=== PATIENT | male | born 1980 | race Caucasian/White ===

== ENCOUNTER 2019-07-25 23:35 | Emergency (ER) | payer SELFPAY ==
[~2019-07-25] VITALS: Ht 180.3 cm; Wt 81.6 kg
[2019-07-25 23:55] VITALS: BP 127/86
--- NOTE | 2019-07-26 00:04 | NUR ---
ED Nurse Note: Pt walked in to ER with family from home c/o behavioral complant. Per pt's dad, pt has paranoia and "people is out to get him". Per mom, episode occured Monday 07/23. Pt stated he was drinking and feels tipsy. Patient presented anxious, talkactive. AAO x4, VSS at this time, skin is dry warm to touch.
--- NOTE | 2019-07-26 00:14 | Emergency Room Report ---
History of Present Illness General Chief Complaint: Behavioral Complaint Source: Patient Present Illness HPI 39-year-old male with no past medical history. He said he drinks alcohol. Parents brought him in for chief complaint of paranoia. Patient said he was very intoxicated earlier today. He felt that someone was watching him in a van and taking picture of him. He thought police was outside out to get him. He actually took his phone and go outside and look inside the van. Right now he said he felt better. He knows that he was paranoid and said it was secondary to his alcohol intoxication. This occurred 2 days ago also. He denies suicidal thoughts or homicidal thought. He actually said that he is not "a detrimental" to himself or others. He refused any blood work or drug screen. Suicidal thoughts homicidal thought. He denies any hallucination or delusion right now. Allergies: Coded Allergies: No Known Allergies (Unverified , 07/25/19) Patient History Past Medical History: see triage record, old chart reviewed Past Surgical History: none Pertinent Family History: none Social History: Reports: alcohol use Immunizations: other Reviewed Nursing Documentation: PMH: Agreed; PSxH: Agreed Review of Systems Eye: Denies: eye pain, blurred vision ENT: Denies: ear pain, nose congestion, throat swelling Respiratory: Denies: cough, shortness of breath Cardiovascular: Denies: chest pain, palpitations Gastrointestinal: Denies: abdominal pain, diarrhea, nausea, vomiting Musculoskeletal: Denies: back pain, joint pain Skin: Denies: rash Neurological: Denies: headache, numbness Endocrine: Denies: increased thirst, increased urine Hematologic/Lymphatic: Denies: easy bruising All Other Systems: negative except mentioned in HPI Physical Exam Vital Signs Date Time Temp Pulse Resp B/P (MAP) Pulse Ox O2 Delivery O2 Flow Rate FiO2 07/25/19 23:39 75.9 98 16 127/86 (100) 98 Room Air Vitals normal Sp02 EP Interpretation: reviewed, normal General Appearance: well appearing, no apparent distress, alert Head: normocephalic, atraumatic Eyes: bilateral eye PERRL, bilateral eye EOMI ENT: hearing grossly normal, normal pharynx Neck: full range of motion, supple, no meningismus Respiratory: chest non-tender, lungs clear, normal breath sounds Cardiovascular #1: regular rate, rhythm, no murmur Gastrointestinal: normal bowel sounds, non tender, no mass, no organomegaly, no bruit, non-distended Musculoskeletal: back normal, gait/station normal, normal range of motion Psychiatric: mood/affect normal Medical Decision Making Diagnostic Impression: Primary Impression: Alcohol intoxication Qualified Codes: F10.920 - Alcohol use, unspecified with intoxication, uncomplicated Additional Impression: Psychosis Qualified Codes: F23 - Brief psychotic disorder ER Course Patient presents with acute psychosis. This may be secondary drugs or alcohol. Patient refused alcohol testing, blood testing or drug screen. At this moment in time, I see no criteria for 5150. I see no criteria to force him to get laboratory data. He is alert oriented x3. He admits to being intoxicated right now. But he is walking without any difficulty. No slurred speech. He is coherent and understands the issues at hand. His parents are here and they expressed understanding that I cannot force him to do blood work if he does not want to. Last Vital Signs Date Time Temp Pulse Resp B/P (MAP) Pulse Ox O2 Delivery O2 Flow Rate FiO2 07/25/19 23:55 75.9 16 127/86 98 Room Air 07/25/19 23:55 98 Status: unchanged Disposition: HOME, SELF-CARE Condition: Stable Patient Instructions: Self-Destructive Behavior Additional Instructions: Follow-up with your doctor in 7 days. Abstain from alcohol and/or drugs. Return if symptoms worsen. Paulino Zambrano MD Jul 26, 2019 00:14
[2019-07-26 00:19] VITALS: BP 127/86
--- NOTE | 2019-07-26 00:20 | NUR ---
ED Nurse Note: Pt cleared by health care Provider for discharge. DC instructions/prescription was given and explained to pt and verbalized understanding of teachings. All medical deviecs such as ID band removed. Pt is AAO x4, ambulatory and left with all personal belongings.
== END 2019-07-26 00:19 | disposition home or self-care (01) ==
LOC: EMR 23:55
DX: F23 Brief psychotic disorder (principal); F10.920 Alcohol use, unspecified with intoxication, uncomplicated
CPT/HCPCS: 99282